=== PATIENT | female | born 1955 | race Hispanic/Latino ===

== ENCOUNTER 2020-08-29 12:13 | Emergency (ER) | payer MEDICAID ==
[2020-08-29] MEDS ORDERED: NORepinephrine/NS 4 MG-250 ML 4 MG/250 ML BAG IV ONE ×2 (12:24→14:35)
[2020-08-29] MEDS: NORepinephrine/NS 4 MG-250 ML 4 MG/250 ML BAG IV SCH ×2 (12:30→15:15)
[2020-08-29] MEDS ORDERED: SODIUM CHLORIDE 0.9% 1000 ML 1,000 ML IV ONE ×2 (12:32→14:35)
[2020-08-29] MEDS ORDERED: LIP THERAPY VASELINE TP PRN (12:33)
[2020-08-29] MEDS ORDERED: MINERAL OIL/PETROLATUM, WHITE OPHTH OINT 3.5 GM OU PRN (12:33)
[2020-08-29] MEDS ORDERED: EPINEPHrine 1 MG/1 ML 8 MG in SODIUM CHLORIDE 0.9% 250ML 242 ML IV ONE (12:45)
--- NOTE | 2020-08-29 12:45 | Emergency Department Report ---
HPI - General Chief Complaint: Cardiac Arrest/CPR Time Seen by Provider: 08/29/20 12:31 - HPI HPI: This is a 64-year-old female presents to the emergency department via EMS from home in cardiac arrest. Apparently patient was last seen alive, no rmal, at about 10 AM. The patient's came home and found the patient unresponsive, laying on her side, and called EMS. EMS found the patient to be pulseless, not breathing, and was PEA on the monitor. They intubated the patient with a 6.0 endotracheal tube. ACLS protocol was initiated and the patient received a total of 4 rounds of epinephrine and 1 of sodium bicarbonate. She had a brief ROSC just prior to presentation that lasted until just after presentation when the patient was placed into room #2. EMS had an Accu-Chek of about 130 in route. The patient was last here in 2018 and has a past medical history listed of COPD, hypertension, carotid artery disease, and it appears th at the patient was a regular smoker at that time. ED Past Medical Hx - Past Medical History Hx Hypertension: Yes Hx Asthma: Yes Hx COPD: Yes Additional medical history: herniated disc, carotid artery blockage - Surgical History Additional Surgical History: tubal ligation - Social History Smoking Status: Heavy Tobacco Smoker - Medications Home Medications: Home Medications Medication Instructions Recorded Confirmed Last Taken Type Butalb/Acetamin/Caff 50-325-40 1 tab PO Q6HR PRN #10 tab 04/06/15 11/04/17 Unknown Rx [Fioricet] Fluticasone [Flonase] 1 spray NS QDAY #1 bottle 04/06/15 11/04/17 Unknown Rx Lisinopril 20 mg PO QDAY 04/06/15 11/04/17 04/06/15 History Oxymetazoline 0.05% [Afrin] 1 spray NS BID #1 bottle 04/06/15 11/04/17 Unknown Rx amLODIPine [Norvasc] 10 mg PO QAM 04/06/15 11/04/17 04/06/15 History hydroCHLOROthiazide 25 mg PO 3XW 04/06/15 11/04/17 04/05/15 History [Hydrochlorothiazide] ED Review of Systems ROS: Stated complaint: CARDIAC ARREST Other details as noted in HPI Comment: Unobtainable due to pts medical conditions Physical Exam - Physical Exam Physical Exam: GENERAL: Patient is ill-appearing and unresponsive. HENT: Normocephalic. Atraumatic. EYES: Pupils are fixed and dilated. NECK: Supple. Trachea appears midline. CHEST/LUNGS: There are no spontaneous respirations. There is some mild wheezing heard with bag valve ventilation. HEART/CARDIOVASCULAR: Heart sounds are faint. No obvious murmur. ABDOMEN: Abdomen is soft. Obese habitus. SKIN: Skin is cool but dry. NEURO: Unresponsive. Does not withdraw to painful stimuli. Does not follow any commands. MUSCULOSKELETAL: There is no obvious deformity. There is no evidence of acute injury. ED Course - Consultations Consultation #1: 08/29/20 13:04 I spoke to the database security administrator on-call, Dr. Sims. He took a look at the EKG and agrees that there are some concerning ST elevations in the inferior leads, but the ST depressions anteriorly are not significant enough to consider this an obvious STEMI. On top of that, I also discussed with Dr. Sims that the patient is here post cardiac arrest, intubated, hypotensive on pressors, and is not stable for any type of procedure or intervention at this time. - ABG Interpretation Ph: [phone] PCO2: 87 PO2: 45 Bicarbonate: 16 Interpretation: respiratory acidosis, metabolic acidosis, other (Hypoxemia) - Central Line Placement Right Femoral Consent Obtained: emergent situation Patient Placed on Monitor/Pulse Ox: Yes MD Prep: mask, gown, gloves Central Line Prep: Chlorhexidine scrub Ultrasound Used for Placement: No Central Line Lumen Inserted: triple Reason for Insertion: Emergency Venous Access Bloods Obtained for Lab: Yes Central Line Position: good blood return, all ports aspirated, flus, sutured in place with nyl Dressing Applied: Tegaderm Patient Tolerated Procedure: well - Intubation Time Out Performed: Yes Assist Device Used: Bougie ET Tube Size: 7.5 Tube Secured Depth (cm): 24 Tube Secured Location: lips Tube Placement Confirmation: equal breath sounds bilat, no breath sounds over epi, confirmation by capnometr Patient Tolerated Procedure: well Additional Comments: The patient was initially intubated by EMS with a 6.0 cuffed endotracheal tube. This was not sufficient for an adult patient so a tube exchange was done. The 6.0 endotracheal tube was deflated. A bougie was placed through the ET tube and then the 6.0 ET tube was removed. A 7.5 ET tube was then placed over the bougie and through the vocal cords to about 24 cm at the lips. The cuff was inf lated with 7 cc of air. There was condensation within the tube, color change capnography, and bilateral breath sounds are with bag valve ventilation. ED Medical Decision Making - Lab Data Result diagrams: 08/29/20 12:44 08/29/20 12:44 Lab Results 08/29/20 08/29/20 08/29/20 Range/Units 12:16 12:44 12:44 WBC 25.0 H (4.5-11.0) K/mm3 RBC 5.54 H (3.65-5.03) M/mm3 Hgb 16.0 H (10.1-14.3) gm/dl Hct 52.4 H (30.3-42.9) % MCV 95 (79-97) fl MCH 29 (28-32) pg MCHC 31 (30-34) % RDW 17.0 H (13.2-15.2) % Plt Count 221 (140-440) K/mm3 Add Manual Diff Complete Total Counted 100 Seg Neuts % (Manual) 76.0 H (40.0-70.0) % Band Neutrophils % 6.0 % Lymphocytes % (Manual) 6.0 L (13.4-35.0) % Reactive Lymphs % (Man) 1.0 % Monocytes % (Manual) 8.0 H (0.0-7.3) % Metamyelocytes % 2.0 % Myelocytes % 1.0 % Nucleated RBC % 1.0 H (0.0-0.9) % Seg Neutrophils # Man 19.0 H (1.8-7.7) K/mm3 Band Neutrophils # 1.5 K/mm3 Lymphocytes # (Manual) 1.5 (1.2-5.4) K/mm3 Abs React Lymphs (Man) 0.3 K/mm3 Monocytes # (Manual) 2.0 H (0.0-0.8) K/mm3 Eosinophils # (Manual) 0.0 (0.0-0.4) K/mm3 Basophils # (Manual) 0.0 (0.0-0.1) K/mm3 Metamyelocytes # 0.5 K/mm3 Myelocytes # 0.3 K/mm3 Promyelocytes # 0.0 K/mm3 Blast Cells # 0.0 K/mm3 WBC Morphology Not Reportable Hypersegmented Neuts Not Reportable Hyposegmented Neuts Not Reportable Hypogranular Neuts Not Reportable Smudge Cells Not Reportable Toxic Granulation Not Reportable Toxic Vacuolation Not Reportable Dohle Bodies Not Reportable Pelger-Huet Anomaly Not Reportable [place] Rods Not Reportable Platelet Estimate Consistent w auto Clumped Platelets Not Reportable Plt Clumps, EDTA Not Reportable Large Platelets Not Reportable Giant Platelets Not Reportable Platelet Satelliting Not Reportable Plt Morphology Comment Not Reportable RBC Morphology Not Reportable Dimorphic RBCs Not Reportable Polychromasia Not Reportable Hypochromasia Not Reportable Poikilocytosis Not Reportable Anisocytosis Few Microcytosis Not Reportable Macrocytosis Few Spherocytes Not Reportable Pappenheimer Bodies Not Reportable Sickle Cells Not Reportable Target Cells Not Reportable Tear Drop Cells Not Reportable Ovalocytes Not Reportable Helmet Cells Not Reportable Hernadez-[place] Bodies Not Reportable [place] Not Reportable Capri Cells Not Reportable Bite Cells Not Reportable Crenated Cell Not Reportable Elliptocytes Not Reportable Acanthocytes (Spur) Not Reportable Rouleaux Not Reportable Hemoglobin C Crystals Not Reportable Schistocytes Not Reportable Malaria parasites Not Reportable Goran Bodies Not Reportable Hem Pathologist Commnt No PT 17.2 H (12.2-14.9) Sec. INR 1.35 H (0.87-1.13) APTT 67.4 H* (24.2-36.6) Sec. ABG pH (7.350-7.450) pH Units ABG pCO2 mm Hg ABG pO2 (80.0-90.0) mm Hg ABG HCO3 (20.0-26.0) mmol/L ABG O2 Saturation (95.0-99.0) % ABG O2 Content (0.0-44) ABG Base Excess (-2.0-3.0) mmol/L ABG Hemoglobin (12.0-16.0) gm/dl ABG Carboxyhemoglobin (0.0-5.0) % ABG Methemoglobin (0.0-1.5) % Oxyhemoglobin (95.0-99.0) % FiO2 % Sodium (137-145) mmol/L Potassium (3.6-5.0) mmol/L Chloride (98-107) mmol/L Carbon Dioxide (22-30) mmol/L Anion Gap mmol/L BUN (7-17) mg/dL Creatinine (0.6-1.2) mg/dL Estimated GFR ml/min BUN/Creatinine Ratio % Glucose (65-100) mg/dL POC Glucose 206 H (70-105) mg/dL Lactic Acid (0.7-2.0) mmol/L Calcium (8.4-10.2) mg/dL Total Bilirubin (0.1-1.2) mg/dL AST (5-40) units/L ALT (7-56) units/L Alkaline Phosphatase (35-129) units/L Ammonia (25-60) umol/L Total Creatine Kinase (30-135) units/L Troponin T (0.00-0.029) ng/mL Total Protein (6.3-8.2) g/dL Albumin (3.9-5) g/dL Albumin/Globulin Ratio % Triglycerides (2-149) mg/dL Cholesterol (50-199) mg/dL LDL Cholesterol Direct (50-130) mg/dL HDL Cholesterol (40-59) mg/dL Cholesterol/HDL Ratio % TSH (0.270-4.200) mlU/mL Plasma/Serum Alcohol (0-0.07) % 08/29/20 08/29/20 08/29/20 Range/Units 12:44 12:44 12:44 WBC (4.5-11.0) K/mm3 RBC (3.65-5.03) M/mm3 Hgb (10.1-14.3) gm/dl Hct (30.3-42.9) % MCV (79-97) fl MCH (28-32) pg MCHC (30-34) % RDW (13.2-15.2) % Plt Count (140-440) K/mm3 Add Manual Diff Total Counted Seg Neuts % (Manual) (40.0-70.0) % Band Neutrophils % % Lymphocytes % (Manual) (13.4-35.0) % Reactive Lymphs % (Man) % Monocytes % (Manual) (0.0-7.3) % Metamyelocytes % % Myelocytes % % Nucleated RBC % (0.0-0.9) % Seg Neutrophils # Man (1.8-7.7) K/mm3 Band Neutrophils # K/mm3 Lymphocytes # (Manual) (1.2-5.4) K/mm3 Abs React Lymphs (Man) K/mm3 Monocytes # (Manual) (0.0-0.8) K/mm3 Eosinophils # (Manual) (0.0-0.4) K/mm3 Basophils # (Manual) (0.0-0.1) K/mm3 Metamyelocytes # K/mm3 Myelocytes # K/mm3 Promyelocytes # K/mm3 Blast Cells # K/mm3 WBC Morphology Hypersegmented Neuts Hyposegmented Neuts Hypogranular Neuts Smudge Cells Toxic Granulation Toxic Vacuolation Dohle Bodies Pelger-Huet Anomaly [place] Rod[place] Platelet Estimate Clumped Platelets Plt Clumps, EDTA Large Platelets Giant Platelets Platelet Satelliting Plt Morphology Comment RBC Morphology Dimorphic RBCs Polychromasia Hypochromasia Poikilocytosis Anisocytosis Microcytosis Macrocytosis Spherocytes Pappenheimer Bodies Sickle Cells Target Cells Tear Drop Cells Ovalocytes Helmet Cells Hernadez-[place] Bodies [place] Cells Bite Cells Crenated Cell Elliptocytes Acanthocytes (Spur) Rouleaux Hemoglobin C Crystals Schistocytes Malaria parasites Goran Bodies Hem Pathologist Commnt PT (12.2-14.9) Sec. INR (0.87-1.13) APTT (24.2-36.6) Sec. ABG pH (7.350-7.450) pH Units ABG pCO2 mm Hg ABG pO2 (80.0-90.0) mm Hg ABG HCO3 (20.0-26.0) mmol/L ABG O2 Saturation (95.0-99.0) % ABG O2 Content (0.0-44) ABG Base Excess (-2.0-3.0) mmol/L ABG Hemoglobin (12.0-16.0) gm/dl ABG Carboxyhemoglobin (0.0-5.0) % ABG Methemoglobin (0.0-1.5) % Oxyhemoglobin (95.0-99.0) % FiO2 % Sodium 143 (137-145) mmol/L Potassium 4.4 (3.6-5.0) mmol/L Chloride 95.3 L (98-107) mmol/L Carbon Dioxide 14 L (22-30) mmol/L Anion Gap 38 mmol/L BUN 14 (7-17) mg/dL Creatinine 1.7 H (0.6-1.2) mg/dL Estimated GFR 30 ml/min BUN/Creatinine Ratio 8 % Glucose 170 H (65-100) mg/dL POC Glucose (70-105) mg/dL Lactic Acid (0.7-2.0) mmol/L Calcium 12.2 H* (8.4-10.2) mg/dL Total Bilirubin 0.50 (0.1-1.2) mg/dL AST 1829 H (5-40) units/L ALT 1256 H (7-56) units/L Alkaline Phosphatase 114 (35-129) units/L Ammonia 364.0 H (25-60) umol/L Total Creatine Kinase (30-135) units/L Troponin T (0.00-0.029) ng/mL Total Protein 5.6 L (6.3-8.2) g/dL Albumin 3.1 L (3.9-5) g/dL Albumin/Globulin Ratio 1.2 % Triglycerides (2-149) mg/dL Cholesterol (50-199) mg/dL LDL Cholesterol Direct (50-130) mg/dL HDL Cholesterol (40-59) mg/dL Cholesterol/HDL Ratio % TSH (0.270-4.200) mlU/mL Plasma/Serum Alcohol < 0.01 (0-0.07) % 08/29/20 08/29/20 08/29/20 Range/Units 12:44 12:44 12:44 WBC (4.5-11.0) K/mm3 RBC (3.65-5.03) M/mm3 Hgb (10.1-14.3) gm/dl Hct (30.3-42.9) % MCV (79-97) fl MCH (28-32) pg MCHC (30-34) % RDW (13.2-15.2) % Plt Count (140-440) K/mm3 Add Manual Diff Total Counted Seg Neuts % (Manual) (40.0-70.0) % Band Neutrophils % % Lymphocytes % (Manual) (13.4-35.0) % Reactive Lymphs % (Man) % Monocytes % (Manual) (0.0-7.3) % Metamyelocytes % % Myelocytes % % Nucleated RBC % (0.0-0.9) % Seg Neutrophils # Man (1.8-7.7) K/mm3 Band Neutrophils # K/mm3 Lymphocytes # (Manual) (1.2-5.4) K/mm3 Abs React Lymphs (Man) K/mm3 Monocytes # (Manual) (0.0-0.8) K/mm3 Eosinophils # (Manual) (0.0-0.4) K/mm3 Basophils # (Manual) (0.0-0.1) K/mm3 Metamyelocytes # K/mm3 Myelocytes # K/mm3 Promyelocytes # K/mm3 Blast Cells # K/mm3 WBC Morphology Hypersegmented Neuts Hyposegmented Neuts Hypogranular Neuts Smudge Cells Toxic Granulation Toxic Vacuolation Dohle Bodies Pelger-Huet Anomaly [place] Rods Platelet Estimate Clumped Platelets Plt Clumps, EDTA Large Platelets Giant Platelets Platelet Satelliting Plt Morphology Comment RBC Morphology Dimorphic RBCs Polychromasia Hypochromasia Poikilocytosis Anisocytosis Microcytosis Macrocytosis Spherocytes Pappenheimer Bodies Sickle Cells Target Cells Tear Drop Cells Ovalocytes Helmet Cells Hernadez-[place] Bodies [place] Cells Bite Cells Crenated Cell Elliptocytes Acanthocytes (Spur) Rouleaux Hemoglobin C Crystals Schistocytes Malaria parasites Goran Bodies Hem Pathologist Commnt PT (12.2-14.9) Sec. INR (0.87-1.13) APTT (24.2-36.6) Sec. ABG pH (7.350-7.450) pH Units ABG pCO2 mm Hg ABG pO2 (80.0-90.0) mm Hg ABG HCO3 (20.0-26.0) mmol/L ABG O2 Saturation (95.0-99.0) % ABG O2 Content (0.0-44) ABG Base Excess (-2.0-3.0) mmol/L ABG Hemoglobin (12.0-16.0) gm/dl ABG Carboxyhemoglobin (0.0-5.0) % ABG Methemoglobin (0.0-1.5) % Oxyhemoglobin (95.0-99.0) % FiO2 % Sodium (137-145) mmol/L Potassium (3.6-5.0) mmol/L Chloride (98-107) mmol/L Carbon Dioxide (22-30) mmol/L Anion Gap mmol/L BUN (7-17) mg/dL Creatinine (0.6-1.2) mg/dL Estimated GFR ml/min BUN/Creatinine Ratio % Glucose (65-100) mg/dL POC Glucose (70-105) mg/dL Lactic Acid 17.50 H* (0.7-2.0) mmol/L Calcium (8.4-10.2) mg/dL Total Bilirubin (0.1-1.2) mg/dL AST (5-40) units/L ALT (7-56) units/L Alkaline Phosphatase (35-129) units/L Ammonia (25-60) umol/L Total Creatine Kinase 6556 H (30-135) units/L Troponin T 0.125 H* (0.00-0.029) ng/mL Total Protein (6.3-8.2) g/dL Albumin (3.9-5) g/dL Albumin/Globulin Ratio % Triglycerides 214 H (2-149) mg/dL Cholesterol 134 (50-199) mg/dL LDL Cholesterol Direct 65 (50-130) mg/dL HDL Cholesterol 46 (40-59) mg/dL Cholesterol/HDL Ratio 2.91 % TSH 1.540 (0.270-4.200) mlU/mL Plasma/Serum Alcohol (0-0.07) % // Range/Units 13:43 WBC (4.5-11.0) K/mm3 RBC (3.65-5.03) M/mm3 Hgb (10.1-14.3) gm/dl Hct (30.3-42.9) % MCV (79-97) fl MCH (28-32) pg MCHC (30-34) % RDW (13.2-15.2) % Plt Count (140-440) K/mm3 Add Manual Diff Total Counted Seg Neuts % (Manual) (40.0-70.0) % Band Neutrophils % % Lymphocytes % (Manual) (13.4-35.0) % Reactive Lymphs % (Man) % Monocytes % (Manual) (0.0-7.3) % Metamyelocytes % % Myelocytes % % Nucleated RBC % (0.0-0.9) % Seg Neutrophils # Man (1.8-7.7) K/mm3 Band Neutrophils # K/mm3 Lymphocytes # (Manual) (1.2-5.4) K/mm3 Abs React Lymphs (Man) K/mm3 Monocytes # (Manual) (0.0-0.8) K/mm3 Eosinophils # (Manual) (0.0-0.4) K/mm3 Basophils # (Manual) (0.0-0.1) K/mm3 Metamyelocytes # K/mm3 Myelocytes # K/mm3 Promyelocytes # K/mm3 Blast Cells # K/mm3 WBC Morphology Hypersegmented Neuts Hyposegmented Neuts Hypogranular Neuts Smudge Cells Toxic Granulation Toxic Vacuolation Dohle Bodies Pelger-Huet Anomaly [place] Rods Platelet Estimate Clumped Platelets Plt Clumps, EDTA Large Platelets Giant Platelets Platelet Satelliting Plt Morphology Comment RBC Morphology Dimorphic RBCs Polychromasia Hypochromasia Poikilocytosis Anisocytosis Microcytosis Macrocytosis Spherocytes Pappenheimer Bodies Sickle Cells Target Cells Tear Drop Cells Ovalocytes Helmet Cells Hernadez-[place] Bodies [place] Cells Bite Cells Crenated Cell Elliptocytes Acanthocytes (Spur) Rouleaux Hemoglobin C Crystals Schistocytes Malaria parasites Goran Bodies Hem Pathologist Commnt PT (12.2-14.9) Sec. INR (0.87-1.13) APTT (24.2-36.6) Sec. ABG pH 6.889 L* (7.350-7.450) pH Units ABG pCO2 87.9 mm Hg ABG pO2 45.4 L (80.0-90.0) mm Hg ABG HCO3 16.4 L (20.0-26.0) mmol/L ABG O2 Saturation 60.3 L (95.0-99.0) % ABG O2 Content 13.1 (0.0-44) ABG Base Excess -18.7 L (-2.0-3.0) mmol/L ABG Hemoglobin 16.1 H (12.0-16.0) gm/dl ABG Carboxyhemoglobin 3.0 (0.0-5.0) % ABG Methemoglobin 0.9 (0.0-1.5) % Oxyhemoglobin 58.0 L (95.0-99.0) % FiO2 100 % Sodium (137-145) mmol/L Potassium (3.6-5.0) mmol/L Chloride (98-107) mmol/L Carbon Dioxide (22-30) mmol/L Anion Gap mmol/L BUN (7-17) mg/dL Creatinine (0.6-1.2) mg/dL Estimated GFR ml/min BUN/Creatinine Ratio % Glucose (65-100) mg/dL POC Glucose (70-105) mg/dL Lactic Acid (0.7-2.0) mmol/L Calcium (8.4-10.2) mg/dL Total Bilirubin (0.1-1.2) mg/dL AST (5-40) units/L ALT (7-56) units/L Alkaline Phosphatase (35-129) units/L Ammonia (25-60) umol/L Total Creatine Kinase (30-135) units/L Troponin T (0.00-0.029) ng/mL Total Protein (6.3-8.2) g/dL Albumin (3.9-5) g/dL Albumin/Globulin Ratio % Triglycerides (2-149) mg/dL Cholesterol (50-199) mg/dL LDL Cholesterol Direct (50-130) mg/dL HDL Cholesterol (40-59) mg/dL Cholesterol/HDL Ratio % TSH (0.270-4.200) mlU/mL Plasma/Serum Alcohol (0-0.07) % - EKG Data -: EKG Interpreted by Wi EKG shows normal: sinus rhythm, axis, intervals, QRS complexes (Right bundle branch block, Q-wave inversions to the septal leads), ST-T waves (Mild ST elevation to the inferior leads, mild ST depression to the anterolateral leads) Rate: normal - EKG Data When compared to previous EKG there are: previous EKG unavailable Interpretation: other (Sinus rhythm at 65 bpm, right bundle branch block, mild ST elevations to the inferior leads, mild ST depressions in anterior lateral leads, Q waves to the septal leads) - Radiology Data Radiology results: image reviewed interpreted by me: Chest x-ray shows appropriate placement of the endotracheal tube. Mild car diomegaly. There is some pulmonary vascular congestion and interstitial edema seen. - Medical Decision Making This patient presents to the emergency department in cardiac arrest. It appears that there was a prolonged downtime before arrival to the emergency department. The patient did have 4 rounds of epinephrine, 1 of sodium bicarbonate at, and was receiving ACLS protocol in route. They had ROSC just as they pulled up to the hospital. She was brought into bed #2 for evaluation. Initially she did have a pulse but within minutes the patient went pulseless and ACLS was restarted. Throughout the patient's ED course she went pulseless 8 different times. At first she appeared to respond well to the epinephrine given. A central line was placed and the patient was started on Levophed and then an epinephrine drip. Chest x-ray shows pulmonary vascular congestion and some interstitial edema. EKG was concerning for possible inferior ST elevation NM. I spoke with the database security administrator on-call and he is in agreement that the EKG is concerning for ischemic changes and borderline STEMI, but the patient is too unstable for any catheterization or procedures so we will not activate the Sales Coach. If the patient becomes more stable, cardiology is happy to consult and follow the patient for possible future intervention if necessary. Patient's labs are concerning for a leukocytosis of 25,000, hyperammonemia with a level of 325, OVIDIO with a GFR of about 30, elevated troponin level, and what appears to be shock liver with severely elevated transaminases, elevated PTT and INR not on anticoagulation, some rhabdomyolysis. Patient is on Levophed, epinephrine drip, dopamine, bicarb drip, and is receiving IV fluid resuscitation. She has maintained a pulse for about 1 hour, however the patient still continues to show significant decline. Her blood pressure is at a map of about 40 despite 3 pressors and the IV fluid. It is difficult to palpate a pulse, but bedside ultrasound still continues to show cardiac activity. There has been no family to come to the emergency department yet to discuss CODE STATUS. Patient has been admitted to the ICU and has been accepted for admission by the hospitalist, Dr. Bentley. Critical Care Time: Yes Critical care time in (mins) excluding proc time.: 80 Critical care attestation.: If time is entered above; I have spent that time in minutes in the direct care of this critically ill patient, excluding procedure time. Critical care time has been spent on this patient in doing her initial evaluation, multiple reevaluations, ordering and interpretation of labs and imaging, multiple different pressors to be titrated for her hypotension, sodium bicarb drip for her severe acidosis, IV fluid resuscitation, supervision of multiple rounds of ACLS protocol. This does not include the separately billable procedures done including CBC placement and ET tube exchange. ED Disposition Clinical Impression: Cardiac arrest, Shock liver, Hyperammonemia, Acute kidney injury, Lactic acidosis, Hypotension Acute respiratory failure Qualifiers: Respiratory failure complication: hypoxia Qualified Code(s): J96.01 - Acute r espiratory failure with hypoxia Disposition: 09 OP ADMIT IP TO THIS HOSP Is pt being admited?: Yes Condition: Critical Referrals: PRIMARY CARE, [Primary Care Provider] - 3-5 Days Time of Disposition: 14:35
[2020-08-29 13:03] LABS: Mean Corpuscular HGB Conc 31 % (30-34); Mean Corpuscular Volume 95 fl (79-97); Platelet Count 221 K/mm3 (140-440); Red Blood Count 5.54 M/mm3 (3.65-5.03)
[2020-08-29 13:12] LABS: INR 1.35 (0.87-1.13)
[2020-08-29 13:22] LABS: Albumin 3.1 g/dL (3.9-5)
[2020-08-29] MEDS ORDERED: DOPamine/D5W 800 MG/250 ML 800 MG/250 ML BAG IV ONE (13:32)
[2020-08-29 13:38] LABS: Partial Thromboplastin Time 67.4 Sec. (24.2-36.6)
[2020-08-29 13:39] LABS: Calcium 12.2 mg/dL (8.4-10.2); Hematocrit 52.4 % (30.3-42.9)
[2020-08-29 14:03] LABS: ABG Base Excess -18.7 mmol/L (-2.0-3.0); ABG HCO3 16.4 mmol/L (20.0-26.0); ABG Methemoglobin 0.9 % (0.0-1.5); ABG Oxygen Saturation 60.3 % (95.0-99.0); ABG PCO2 87.9 mm Hg; ABG PO2 45.4 mm Hg (80.0-90.0)
[2020-08-29 14:06] LABS: ABG PH 6.889 pH Units (7.350-7.450)
--- NOTE | 2020-08-29 14:30 | XRay Report ---
CHEST 1 VIEW 08/29/2020 1:15 PM INDICATION / CLINICAL INFORMATION: ETT placement. COMPARISON: 11/15/17 FINDINGS: SUPPORT DEVICES: Endotracheal tube has been placed with the tip 3 cm above the jeanie. Esophagogastri c tube has been placed below the diaphragm into the stomach. HEART / MEDIASTINUM: Upper normal size and stable. LUNGS / PLEURA: Moderate interstitial pulmonary edema. No significant pleural effusion. No pneumothor ax. ADDITIONAL FINDINGS: No significant additional findings. IMPRESSION: 1. Endotracheal tube in expected position. 2. Moderate pulmonary edema. Signer Name: Perry Abraham MD Signed: 08/29/2020 2:25 PM Workstation Name: [email or web address]
[2020-08-29 14:31] LABS: Chol/HDL Ratio 2.91 %
[2020-08-29] MEDS ORDERED: LACTULOSE 20 GM/30 ML ORAL LIQD PO ONE (14:36)
[2020-08-29] MEDS ORDERED: SODIUM BICARBONATE 150 MEQ in DEXTROSE 5% IN WATER 1,000 ML IV SCH (15:00)
[2020-08-29 15:03] LABS: Anisocytosis Few; Band Neutrophils # (Manual) 1.5 K/mm3; Macrocytosis Few; Myelocytes # (Manual) 0.3 K/mm3; Total Cells Counted 100
[2020-08-29 15:04] LABS: Platelet Estimate Consistent w Auto
[2020-08-29] MEDS ORDERED: CALCIUM CHLORIDE 1,000 MG/10 ML SYRINGE IV ONE (16:00)
[2020-08-29] MEDS ORDERED: EPINEPHrine 1 MG/10 ML SYRINGE ONE (16:00)
[2020-08-29] MEDS ORDERED: SODIUM BICARB 8.4% 50 MEQ/50 ML SYRINGE IV ONE (16:00)
[2020-08-29 16:18] VITALS: BP 57/33
[2020-08-29] MEDS ORDERED: NORepinephrine/NS 8 MG-250 ML 8 MG/250 ML INFUS..BTL IV SCH (17:00)
--- NOTE | 2020-08-29 18:22 | History and Physical Report ---
History of Present Illness Date of examination: 08/29/20 Date of admission: 08/29/2020 Chief complaint: Cardiac arrest History of present illness: 64-year-old female with history of hypertension brought in for cardiac arrest. Patient was found unresponsive laying on her side. EMS was called patient was in pulseless electrical activity. ACLS protocol was done in the emergency room and patient was intubated. 4 rounds of epinephrine and 1 round of sodium bicarbonate was given she had a brief ROSC. After multiple CPR patient was revived and was in with ROSC. Patient was with low blood pressure around 80/45 and heart rate of 49/min. Patient was initiated on pressors. Try to contact the family but of no avail. Left a voicemail. The phone number I try to contact was [phone] Dr. Sims took a look at the EKG and agrees that there are some concerning ST elevations in the inferior leads, but the ST depressions anteriorly are not significant enough to consider this an obvious STEMI. On top of that, I also discussed with Dr. Sims that the patient is here post cardiac arrest, intubated, hypotensive on pressors, and is not stable for any type of procedure or intervention at this time. - Past Medical History Hx Hypertension: Yes Hx Asthma: Yes Hx COPD: Yes Additional medical history: herniated disc, carotid artery blockage - Surgical History Additional Surgical History: tubal ligation - Social History Smoking Status: Heavy Tobacco Smoker - Medications Home Medications: Home Medications Medication Instructions Recorded Confirmed Last Taken Type Butalb/Acetamin/Caff 50-325-40 1 tab PO Q6HR PRN #10 tab 04/06/15 11/04/17 Unknown Rx [Fioricet] Fluticasone [Flonase] 1 spray NS QDAY #1 bottle 04/06/15 11/04/17 Unknown Rx Lisinopril 20 mg PO QDAY 04/06/15 11/04/17 04/06/15 History Oxymetazoline 0.05% [Afrin] 1 spray NS BID #1 bottle 04/06/15 11/04/17 Unknown Rx amLODIPine [Norvasc] 10 mg PO QAM 04/06/15 11/04/17 04/06/15 History hydroCHLOROthiazide 25 mg PO 3XW 04/06/15 11/04/17 04/05/15 History [Hydrochlorothiazide] Review of Systems ROS: Stated complaint: CARDIAC ARREST Other details as noted in HPI Comment: Unobtainable due to pts medical conditions - Physical Exam Physical Exam: GENERAL: Patient is ill-appearing and unresponsive. HENT: Normocephalic. Atraumatic. EYES: Pupils are fixed and dilated. NECK: Supple. Trachea appears midline. CHEST/LUNGS: There are no spontaneous respirations. There is some mild wheezing heard with bag valve ventilation. HEART/CARDIOVASCULAR: Heart sounds are faint. No obvious murmur. ABDOMEN: Abdomen is soft. Obese habitus. SKIN: Skin is cool but dry. NEURO: Unresponsive. Does not withdraw to painful stimuli. Does not follow any commands. MUSCULOSKELETAL: There is no obvious deformity. There is no evidence of acute injury. ED Course - Consultations Consultation #1: 08/29/20 13:04 I spoke to the marker assembler on-call, Medications and Allergies Allergies Allergy/AdvReac Type Severity Reaction Status Date / Time Penicillins AdvReac Swelling Verified 11/04/17 10:06 Home Medications Medication Instructions Recorded Confirmed Last Taken Type Butalb/Acetamin/Caff 50-325-40 1 tab PO Q6HR PRN #10 tab 04/06/15 11/04/17 Unknown Rx [Fioricet] Fluticasone [Flonase] 1 spray NS QDAY #1 bottle 04/06/15 11/04/17 Unknown Rx Lisinopril 20 mg PO QDAY 04/06/15 11/04/17 04/06/15 History Oxymetazoline 0.05% [Afrin] 1 spray NS BID #1 bottle 04/06/15 11/04/17 Unknown Rx amLODIPine [Norvasc] 10 mg PO QAM 04/06/15 11/04/17 04/06/15 History hydroCHLOROthiazide 25 mg PO 3XW 04/06/15 11/04/17 04/05/15 History [Hydrochlorothiazide] Active Meds: Active Medications Famotidine (Famotidine 20 Mg/2 Ml Inj) 20 mg IV BID MUSA Hydrophilic Ointment (Lip Therapy Vaseline) 1 applic TP Q2HR PRN PRN Reason: Dry Lips Epinephrine 8 mg/ Sodium (Chloride) 250 mls @ 3.75 mls/hr IV TITR ONE; Protocol Stop: 09/01/20 07:24 Last Titration: 08/29/20 13:10 Dose: 20 mcg/min, 37.5 mls/hr Documented by: Sodium Bicarbonate 150 meq/ (Dextrose) 1,150 mls @ 125 mls/hr IV DIRECT MUSA Last Admin: 08/29/20 16:02 Dose: 125 mls/hr Documented by: NORepinephrine/NS 8 MG-250 ML (Norepinephrine/Ns 8 Mg-250 Ml (Double Conc)) 8 mg in 250 mls @ 3.75 mls/hr IV TITRATE MUSA; Protocol Multi-Ingred Cream/Lotion/Oil/Oint (Mineral Oil/Petrolatum, White Ophth Oint 3.5 Gm) 1 applic OU Q4HR PRN PRN Reason: Dry Eye(s) Senna/Docusate Sodium (Sennosides/Docusate Sodium 8.6/50 Mg Tab) 1 tab FEEDTUBE BID MUSA Exam - Physical Exam Narrative exam: Patient intubated Blood pressure is low 60/35 On pressors Heart rate 49 - Constitutional Vitals: Temp Pulse Resp BP Pulse Ox 50 L 17 57/33 89 08/29/20 16:36 08/29/20 16:15 08/29/20 16:36 08/29/20 16:36 General appearance: Present: no acute distress, well-nourished - EENT Eyes: Present: PERRL (Pupils dilated and sluggish) ENT: hearing intact - Neck Neck: Present: supple, normal ROM - Respiratory Respiratory effort: normal Respiratory: bilateral: CTA - Cardiovascular Heart Sounds: Present: S1 & S2. Absent: rub, click - Extremities Extremities: pulses symmetrical, No edema Peripheral Pulses: within normal limits - Abdominal General gastrointestinal: Present: soft, non-tender, non-distended, normal bowel sounds Female genitourinary: Present: normal - Integumentary Integumentary: Present: clear, warm, dry - Neurologic Neurologic: other (Unresponsive) - Allied Health Allied health notes reviewed: nursing, case management HEART Score - HEART Score Troponin: Troponin T 0.125 ng/mL (0.00-0.029) H* 08/29/20 12:44 Results - Labs CBC & Chem 7: 08/29/20 12:44 08/29/20 12:44 Labs: Laboratory Last Values WBC 25.0 K/mm3 (4.5-11.0) H 08/29/20 12:44 RBC 5.54 M/mm3 (3.65-5.03) H 08/29/20 12:44 Hgb 16.0 gm/dl (10.1-14.3) H 08/29/20 12:44 Hct 52.4 % (30.3-42.9) H 08/29/20 12:44 MCV 95 fl (79-97) 08/29/20 12:44 MCH 29 pg (28-32) 08/29/20 12:44 MCHC 31 % (30-34) 08/29/20 12:44 RDW 17.0 % (13.2-15.2) H 08/29/20 12:44 Plt Count 221 K/mm3 (140-440) 08/29/20 12:44 Add Manual Diff Complete 08/29/20 12:44 Total Counted 100 08/29/20 12:44 Seg Neuts % (Manual) 76.0 % (40.0-70.0) H 08/29/20 12:44 Band Neutrophils % 6.0 % 08/29/20 12:44 Lymphocytes % (Manual) 6.0 % (13.4-35.0) L 08/29/20 12:44 Reactive Lymphs % (Man) 1.0 % 08/29/20 12:44 Monocytes % (Manual) 8.0 % (0.0-7.3) H 08/29/20 12:44 Metamyelocytes % 2.0 % 08/29/20 12:44 Myelocytes % 1.0 % 08/29/20 12:44 Nucleated RBC % 1.0 % (0.0-0.9) H 08/29/20 12:44 Seg Neutrophils # Man 19.0 K/mm3 (1.8-7.7) H 08/29/20 12:44 Band Neutrophils # 1.5 K/mm3 08/29/20 12:44 Lymphocytes # (Manual) 1.5 K/mm3 (1.2-5.4) 08/29/20 12:44 Abs React Lymphs (Man) 0.3 K/mm3 08/29/20 12:44 Monocytes # (Manual) 2.0 K/mm3 (0.0-0.8) H 08/29/20 12:44 Eosinophils # (Manual) 0.0 K/mm3 (0.0-0.4) 08/29/20 12:44 Basophils # (Manual) 0.0 K/mm3 (0.0-0.1) 08/29/20 12:44 Metamyelocytes # 0.5 K/mm3 08/29/20 12:44 Myelocytes # 0.3 K/mm3 08/29/20 12:44 Promyelocytes # 0.0 K/mm3 08/29/20 12:44 Blast Cells # 0.0 K/mm3 08/29/20 12:44 WBC Morphology Not Reportable 08/29/20 12:44 Hypersegmented Neuts Not Reportable 08/29/20 12:44 Hyposegmented Neuts Not Reportable 08/29/20 12:44 Hypogranular Neuts Not Reportable 08/29/20 12:44 Smudge Cells Not Reportable 08/29/20 12:44 Toxic Granulation Not Reportable 08/29/20 12:44 Toxic Vacuolation Not Reportable 08/29/20 12:44 Dohle Bodies Not Reportable 08/29/20 12:44 Pelger-Huet Anomaly Not Reportable 08/29/20 12:44 [place] Rods Not Reportable 08/29/20 12:44 Platelet Estimate Consistent w auto 08/29/20 12:44 Clumped Platelets Not Reportable 08/29/20 12:44 Plt Clumps, EDTA Not Reportable 08/29/20 12:44 Large Platelets Not Reportable 08/29/20 12:44 Giant Platelets Not Reportable 08/29/20 12:44 Platelet Satelliting Not Reportable 08/29/20 12:44 Plt Morphology Comment Not Reportable 08/29/20 12:44 RBC Morphology Not Reportable 08/29/20 12:44 Dimorphic RBCs Not Reportable 08/29/20 12:44 Polychromasia Not Reportable 08/29/20 12:44 Hypochromasia Not Reportable 08/29/20 12:44 Poikilocytosis Not Reportable 08/29/20 12:44 Anisocytosis Few 08/29/20 12:44 Microcytosis Not Reportable 08/29/20 12:44 Macrocytosis Few 08/29/20 12:44 Spherocytes Not Reportable 08/29/20 12:44 Pappenheimer Bodies Not Reportable 08/29/20 12:44 Sickle Cells Not Reportable 08/29/20 12:44 Target Cells Not Reportable 08/29/20 12:44 Tear Drop Cells Not Reportable 08/29/20 12:44 Ovalocytes Not Reportable 08/29/20 12:44 Helmet Cells Not Reportable 08/29/20 12:44 Hernadez-Matteson Bodies Not Reportable 08/29/20 12:44 [place] Rings Not Reportable 08/29/20 12:44 Capri Cells Not Reportable 08/29/20 12:44 Bite Cells Not Reportable 08/29/20 12:44 Crenated Cell Not Reportable 08/29/20 12:44 Elliptocytes Not Reportable 08/29/20 12:44 Acanthocytes (Spur) Not Reportable 08/29/20 12:44 Rouleaux Not Reportable 08/29/20 12:44 Hemoglobin C Crystals Not Reportable 08/29/20 12:44 Schistocytes Not Reportable 08/29/20 12:44 Malaria parasites Not Reportable 08/29/20 12:44 Goran Bodies Not Reportable 08/29/20 12:44 Hem Pathologist Commnt No 08/29/20 12:44 PT 17.2 Sec. (12.2-14.9) H 08/29/20 12:44 INR 1.35 (0.87-1.13) H 08/29/20 12:44 APTT 67.4 Sec. (24.2-36.6) H* 08/29/20 12:44 ABG pH 6.889 pH Units (7.350-7.450) L* 08/29/20 13:43 ABG pCO2 87.9 mm Hg 08/29/20 13:43 ABG pO2 45.4 mm Hg (80.0-90.0) L 08/29/20 13:43 ABG HCO3 16.4 mmol/L (20.0-26.0) L 08/29/20 13:43 ABG O2 Saturation 60.3 % (95.0-99.0) L 08/29/20 13:43 ABG O2 Content 13.1 (0.0-44) 08/29/20 13:43 ABG Base Excess -18.7 mmol/L (-2.0-3.0) L 08/29/20 13:43 ABG Hemoglobin 16.1 gm/dl (12.0-16.0) H 08/29/20 13:43 ABG Carboxyhemoglobin 3.0 % (0.0-5.0) 08/29/20 13:43 ABG Methemoglobin 0.9 % (0.0-1.5) 08/29/20 13:43 Oxyhemoglobin 58.0 % (95.0-99.0) L 08/29/20 13:43 FiO2 100 % 08/29/20 13:43 Sodium 143 mmol/L (137-145) 08/29/20 12:44 Potassium 4.4 mmol/L (3.6-5.0) 08/29/20 12:44 Chloride 95.3 mmol/L (98-107) L 08/29/20 12:44 Carbon Dioxide 14 mmol/L (22-30) L 08/29/20 12:44 Anion Gap 38 mmol/L 08/29/20 12:44 BUN 14 mg/dL (7-17) 08/29/20 12:44 Creatinine 1.7 mg/dL (0.6-1.2) H 08/29/20 12:44 Estimated GFR 30 ml/min 08/29/20 12:44 BUN/Creatinine Ratio 8 % 08/29/20 12:44 Glucose 170 mg/dL (65-100) H 08/29/20 12:44 POC Glucose 206 mg/dL (70-105) H 08/29/20 12:16 Lactic Acid 17.50 mmol/L (0.7-2.0) H* 08/29/20 12:44 Calcium 12.2 mg/dL (8.4-10.2) H* 08/29/20 12:44 Total Bilirubin 0.50 mg/dL (0.1-1.2) 08/29/20 12:44 AST 1829 units/L (5-40) H 08/29/20 12:44 ALT 1256 units/L (7-56) H 08/29/20 12:44 Alkaline Phosphatase 114 units/L (35-129) 08/29/20 12:44 Ammonia 364.0 umol/L (25-60) H 08/29/20 12:44 Total Creatine Kinase 6556 units/L (30-135) H 08/29/20 12:44 Troponin T 0.125 ng/mL (0.00-0.029) H* 08/29/20 12:44 Total Protein 5.6 g/dL (6.3-8.2) L 08/29/20 12:44 Albumin 3.1 g/dL (3.9-5) L 08/29/20 12:44 Albumin/Globulin Ratio 1.2 % 08/29/20 12:44 Triglycerides 214 mg/dL (2-149) H 08/29/20 12:44 Cholesterol 134 mg/dL (50-199) 08/29/20 12:44 LDL Cholesterol Direct 65 mg/dL (50-130) 08/29/20 12:44 HDL Cholesterol 46 mg/dL (40-59) 08/29/20 12:44 Cholesterol/HDL Ratio 2.91 % 08/29/20 12:44 TSH 1.540 mlU/mL (0.270-4.200) 08/29/20 12:44 Plasma/Serum Alcohol < 0.01 % (0-0.07) 08/29/20 12:44 Short CBC 08/29/20 Range/Units 12:44 WBC 25.0 H (4.5-11.0) K/mm3 Hgb 16.0 H (10.1-14.3) gm/dl Hct 52.4 H (30.3-42.9) % Plt Count 221 (140-440) K/mm3 BMP 08/29/20 12:44 Sodium 143 Potassium 4.4 Chloride 95.3 L Carbon Dioxide 14 L BUN 14 Creatinine 1.7 H Glucose 170 H Calcium 12.2 H* Cardiac Enzymes 08/29/20 Range/Units 12:44 Total Creatine Kinase 6556 H (30-135) units/L Troponin T 0.125 H* (0.00-0.029) ng/mL Liver Function 08/29/20 Range/Units 12:44 Total Bilirubin 0.50 (0.1-1.2) mg/dL AST 1829 H (5-40) units/L ALT 1256 H (7-56) units/L Alkaline Phosphatase 114 (35-129) units/L Albumin 3.1 L (3.9-5) g/dL Assessment and Plan Assessment and plan: Critical care time The high probability OF a clinically significant sudden or life-threatening deterioration of the cardiorespiratory system and endocrine system required my full and direct attention, intervention and postoperative management. The aggregate critical care time was 40 minutes. The time is in addition to time spent performing reported procedures but includes the followin: Data review and interpretation 2: Patient assessment and monitoring of vital signs 3: Documentation 4:: Medication orders and management Advance Directives: Yes (Full code) VTE prophylaxis?: Chemical Plan of care discussed with patient/family: Yes - Patient Problems (1) Cardiac arrest Current Visit: Yes Status: Acute Plan to address problem: Patient revived and was started on pressors IV antibiotics (2) Acute respiratory failure Current Visit: Yes Status: Acute Qualifiers: Respiratory failure complication: hypoxia Qualified Code(s): J96.01 - Acute respiratory failure with hypoxia Plan to address problem: Patient intubated on and on vent management Prognosis is very poor (3) Septic shock Current Visit: Yes Status: Acute Plan to address problem: Patient on pressors and IV antibiotics Very poor prognosis (4) OVIDIO (acute kidney injury) Current Visit: Yes Status: Acute Plan to address problem: IV fluids for now (5) Full code status Current Visit: Yes Status: Acute Plan to address problem: To talk with the family and make the patient DNR Family is unavailable and unable to contact
--- NOTE | 2020-08-29 21:03 | Death Summary ---
Summary - Providers Date of service: 08/29/20 Consults: 08/29/20 12:33 Consult to Dietitian/Nutrition [CONS] Routine Physician Instructions: Reason For Exam: Reason for Consult: Evaluate nutritional intake Attending: Cody - summary Date of : 08/29/20 Disposition: In spite of aggressive ACLS followed by intubation, vent support IV antibiotics and pressors patient declined and start spontaneous breathing around 1750 hrs. Cause of Cardiorespiratory arrest Septic shock Time of expiration 1750 hrs. - Final diagnosis (1) Cardiac arrest Note: Final diagnosis: (2) Acute respiratory failure Qualifiers: Respiratory failure complication: hypoxia Qualified Code(s): J96.01 - Acute respiratory failure with hypoxia Note: Final diagnosis: (3) Septic shock Note: Final diagnosis: (4) OVIDIO (acute kidney injury) Note: Final diagnosis:
[2020-08-29] MEDS ORDERED: FAMOTIDINE 20 MG/2 ML INJ IV SCH (22:00)
[2020-08-29] MEDS ORDERED: SENNOSIDES/DOCUSATE SODIUM 8.6/50 MG TAB FEEDTUBE SCH (22:00)
--- NOTE | 2020-09-02 11:05 | Electrocardiograph Report ---
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 Anteroseptal infarct, age indeterminate No previous ECG available for comparison Correlate clinically. Electronically Signed On 09-02-2020 11:04:57 EDT by Porfirio Peña
== END 2020-08-29 17:50 ==
LOC: ED 12:13
DX: I46.9 Cardiac arrest, cause unspecified (principal); N17.9 Acute kidney failure, unspecified; I95.9 Hypotension, unspecified; A41.9 Sepsis, unspecified organism; E87.2 Acidosis; E72.20 Disorder of urea cycle metabolism, unspecified; K72.00 Acute and subacute hepatic failure without coma; J96.00 Acute respiratory failure, unspecified whether with hypoxia or hypercapnia; I10 Essential (primary) hypertension; J44.9 Chronic obstructive pulmonary disease, unspecified; F17.200 Nicotine dependence, unspecified, uncomplicated; Z98.51 Tubal ligation status; Z79.899 Other long term (current) drug therapy; Z88.0 Allergy status to penicillin
CPT/HCPCS: 31500; 36415; 36556; 71045; 80053; 80061; 82140; 82550; 82803; 82962; 84443; 84484; 85007; 85025; 85610; 85730; 92950; 93005; 96360; 99291; 99292; J0171; J7030; J7050; J7070; 80320; 94002; 96361; G0480